=== PATIENT | male | born 1980 | race Caucasian/White ===

== ENCOUNTER → 2017-01-02 19:45 | Emergency (ER) | payer MEDICAID, OTHER ==
[~2017-01-02 19:45] MED LIST: Ketorolac INJ* 30 MG/ML 1 ML VIAL IV PUSH ONE; Piperac/Tazob 3.375 gm in NS* 3.375 GM/100 ML BAG IVPB ONE
[2017-01-02 21:56] LABS: Hematocrit 49 % (42-52); Mean Corpuscular HGB Conc 33 g/dl (31-36); Mean Corpuscular Hemoglobin 30 pg (27-31); Mean Corpuscular Volume 91 fL (80-94); Mean Platelet Volume 9 um3 (7.4-10.4); Red Blood Count 5.35 10^6/ul (4.0-5.4); Red Cell Distribution Width 13 % (10.5-15); White Blood Count 10.4 10^3/ul (3.5-10.8)
[2017-01-02 22:10] LABS: Albumin 5.1 g/dL (3.2-5.2); BUN/Creatinine Ratio 10.3 (8-20); C Reactive Protein 4.19 mg/L (< 5.00); EGFR Non-African American 77.8 (>60); Globulin 2.9 g/dL (2-4); Potassium 3.6 mmol/L (3.5-5.0)
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
[2017-01-03 01:10] VITALS: BP 127/69
== END | disposition home or self-care (01) ==
LOC: ED 19:45
DX: L03.90 Cellulitis, unspecified (principal); J34.89 Other specified disorders of nose and nasal sinuses; R60.9 Edema, unspecified
CPT/HCPCS: 36415; 80053; 85025; 86140; 96374; 99283; J1885; J2543

== ENCOUNTER 2017-03-31 13:54 | Emergency (ER) | payer OTHER ==
[2017-03-31 14:23] VITALS: BP 141/80
--- NOTE | 2017-03-31 14:44 | UC ---
Skin Complaint HPI - HPI Summary HPI Summary: This is an otherwise healthy 36 yo male who presented with complaints of nasal erythema and swelling. Patient was seen in the ER ~ 3 months ago with similar symptoms, but more severe. He was treated for a facial cellulitis at that time with Bactrim. He states that his symptoms resolved completely but he had palpable nodules that were persistent after the resolution of the infection. Last night he had what looks like a "pimple" that popped revealing white, purulent substance and when he awoke this am he had increased redness and swelling. No fever, malaise. - History of Current Complaint Chief Complaint: UCSkin Stated Complaint: NOSE INFECTION - Allergy/Home Medications Allergies/Adverse Reactions: Allergies Allergy/AdvReac Type Severity Reaction Status Date / Time No Known Allergies Allergy Verified 03/31/17 14:23 Home Medications: Home Medications Multiple Vitamins W/ Minerals [Centrum Ultra Mens] 1 tab PO DAILY 03/31/17 [ History Confirmed 03/31/17] [place]-3 Fatty Acids [Fish Oil] 1 tab PO DAILY 03/31/17 [History Confirmed ] Review of Systems Constitutional: Negative Skin: Rash Eyes: Negative ENT: Negative Respiratory: Negative Cardiovascular: Negative Gastrointestinal: Negative Genitourinary: Negative Motor: Negative Neurovascular: Negative Musculoskeletal: Negative Neurological: Negative Psychological: Negative All Other Systems Reviewed And Are Negative: Yes PMH/Surg Hx/FS Hx/Imm Hx Previously Healthy: Yes Endocrine History Of: Denies: Diabetes, Thyroid Disease Cardiovascular History Of: Denies: Cardiac Disorders, Hypertension Respiratory History Of: Denies: COPD, Asthma GI/ History Of: Denies: Ulcer - Surgical History Surgical History: None - Family History Known Family History: Positive: None Negative: Cardiac Disease, Hypertension, Diabetes - Social History Alcohol Use: Occasionally Substance Use Type: None Smoking Status (MU): Never Smoked Tobacco Physical Exam Triage Information Reviewed: Yes Appearance: Well-Appearing Vital Signs: Initial Vital Signs Temp 98.2 F 03/31/17 14:16 Pulse 74 03/31/17 14:16 Resp 14 03/31/17 14:16 BP 141/80 03/31/17 14:16 Pulse Ox 100 03/31/17 14:16 Vital Signs Reviewed: Yes ENT: Positive: Other: - mild swelling and erythema of the L nare, no palpable fluctuance, some induration, no open area Neck: Positive: Supple Respiratory Exam: Normal Respiratory: Positive: Chest non-tender, Lungs clear Cardiovascular: Positive: RRR, No Murmur Course/Dx - Course Course Of Treatment: This is an otherwise healthy 36 yo male who presented with erythema and swelling of the R nare, which the 2nd time it has occured, last ~3 months ago. Will treat for a cellulitis with Bactrim as he has responded to that in the past. Recommend eval by ENT. - Differential Diagnoses - Skin Complaint Differential Diagnoses: Abscess, Lymphangitis - Diagnoses Provider Diagnoses: 1. Facial cellulitis - R nare Discharge - Discharge Plan Condition: Stable Disposition: HOME Prescriptions: Sulfamethox/Trimethoprim DS* [Bactrim DS 800/160 TAB*] 1 tab PO BID #20 tab Patient Education Materials: Cellulitis (ED) Referrals: Akhil Landrum MD [Primary Care Provider] - Arsenio Kingston MD [Medical Doctor] - 2 Weeks Additional Instructions: Activity: No restrictions Instructions: 1. Take antibiotics as directed for 10 days 2. Please follow up with ENT specialist regarding recurrence of cellulitis
== END 2017-03-31 14:44 | disposition home or self-care (01) ==
LOC: UCEAST 13:54
DX: J34.0 Abscess, furuncle and carbuncle of nose (principal)
CPT/HCPCS: 99212; G0463